=== PATIENT | female | born 1985 | race Caucasian/White ===

== ENCOUNTER 2017-02-04 10:37 | Emergency (ER) | payer OTHER ==
[2017-02-04 11:09] VITALS: BP 127/80
--- NOTE | 2017-02-04 11:30 | UC ---
Dental HPI - HPI Summary HPI Summary: pt presents with c/o with left lower jaw swelling, tenderness and fracture of left lower molar. Pt reports that the left lower molar broke " a few days ago " and last night began to have tenderness and swelling in left lower jaw. - History of Current Complaint Chief Complaint: UCDentalProblem Stated Complaint: DENTAL COMPLAINT Time Seen by Provider: 02/04/17 11:26 Hx Obtained From: Patient Hx Last Menstrual Period: 01/24/17 ?: No Onset/Duration: Sudden Onset, Lasting Hours Severity: Moderate Aggravating: Heat, Cold, Chewing Alleviating: Nothing Related History: Swelling, Other - fractured tooth, generalized poor dentition - Allergies/Home Medications Allergies/Adverse Reactions: Allergies Allergy/AdvReac Type Severity Reaction Status Date / Time No Known Allergies Allergy Verified 02/04/17 11:10 Home Medications: Home Medications ALPRAZolam TAB* [Xanax TAB*] 0.25 mg PO Q12H PRN 02/04/17 [History Confirmed 05/14] Escitalopram Oxalate [Lexapro 20 mg] 20 mg PO DAILY 02/04/17 [History Confirmed 02/04/17] PMH/Surg Hx/FS Hx/Imm Hx Previously Healthy: Yes - poor dentition - Surgical History Surgical History: Yes Surgery Procedure, Year, and Place: appendectomy, emergency 06/22/15, tubal ligation - Family History Known Family History: Positive: Cardiac Disease - Social History Alcohol Use: Rare Substance Use Type: None Smoking Status (MU): Light Every Day Tobacco Smoker Type: Cigarettes Amount Used/How Often: 10 cig/per day Length of Time of Smoking/Using Tobacco: 12 + years Have You Smoked in the Last Year: Yes Review of Systems Constitutional: Negative Skin: Negative Eyes: Negative ENT: Other - left lower jaw/gum swelling Respiratory: Negative Cardiovascular: Negative Gastrointestinal: Negative Genitourinary: Negative Motor: Negative Neurovascular: Negative Musculoskeletal: Negative Neurological: Negative Psychological: Negative All Other Systems Reviewed And Are Negative: Yes Physical Exam Triage Information Reviewed: Yes Appearance: Pain Distress Vital Signs: Initial Vital Signs Temp 97.4 F 02/04/17 11:03 Pulse 65 02/04/17 11:03 Resp 18 02/04/17 11:03 BP 127/80 02/04/17 11:03 Vital Signs Reviewed: Yes Eye Exam: Normal ENT Exam: Other ENT: Positive: Other: - left lower jaw swelling, Dental Exam: Other Dental: Positive: Gross Decay/Caries @ - generalized, Dental Fracture @ - left lower jaw/molar, Abscess @ - left lower jaw/molar Neck exam: Normal Respiratory Exam: Normal Cardiovascular Exam: Normal Musculoskeletal Exam: Normal Neurological Exam: Normal Psychological Exam: Normal Skin Exam: Normal Dental Complaint Course/Dx - Differential Dx/Diagnosis Differential Diagnosis/Dx: Dental Abscess, Fractured Tooth Provider Diagnoses: dental abscess. fractured tooth. poor dentition Discharge - Discharge Plan Condition: Stable Disposition: HOME Prescriptions: Amoxicillin (*) [Amoxicillin 875 MG (*)] 875 mg PO Q12H #20 tab Ibuprofen TAB* [Motrin TAB* 800 MG] 800 mg PO Q8H #30 tab Lidocaine 2% VISCOUS* [Xylocaine 2% Viscous*] 15 ml SWISH SPIT Q4H PRN #1 btl PRN Reason: Pain predniSONE TAB* [Deltasone TAB*] 30 mg PO DAILY #12 tab Patient Education Materials: Dental Abscess (ED) Referrals: No Primary Care Phys,NOPCP [Primary Care Provider] - Additional Instructions: Please follow up with your dental care provider as soon as possible.
== END 2017-02-04 11:39 | disposition home or self-care (01) ==
LOC: UCCORT 10:37
DX: K04.7 Periapical abscess without sinus (principal); K03.81 Cracked tooth; F17.210 Nicotine dependence, cigarettes, uncomplicated
CPT/HCPCS: 99212; G0463

== ENCOUNTER 2017-04-25 15:56 | Emergency (ER) | payer OTHER ==
--- NOTE | 2017-04-25 16:08 | UC ---
Back Pain HPI - HPI Summary HPI Summary: 31 year old female with back pain and injury from work. LOW BACK PAIN SINCE LAST SATURDAY. 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 HAS BEEN OFF WORK SINCE. USING ICE AND HEAT. TAKING IBUPROFEN WITH NO RELIEF. FOR 4 DAYS HAS NUMBNESS IN RIGHT HAND ON AND OFF. [ End ] - History of Current Complaint Stated Complaint: LOWER BACK PAIN WC Time Seen by Provider: 04/25/17 16:07 Hx Obtained From: Patient Hx Last Menstrual Period: 01/24/17 Onset/Duration: Sudden Onset Character: Stiffness Aggravating Factor(s): Movement Alleviating Factor(s): Rest - Allergies/Home Medications Allergies/Adverse Reactions: Allergies Allergy/AdvReac Type Severity Reaction Status Date / Time No Known Allergies Allergy Verified 04/25/17 16:10 Home Medications: Home Medications Minocycline HCl 50 mg PO BID 04/25/17 [History Confirmed 04/25/17] hydrOXYzine HCL TAB* [Atarax 10 MG TAB*] 10 mg PO BEDTIME 04/25/17 [History Confirmed 04/25/17] PMH/Surg Hx/FS Hx/Imm Hx Previously Healthy: Yes - Surgical History Surgical History: Yes Surgery Procedure, Year, and Place: appendectomy, emergency 06/22/15, tubal ligation - Family History Known Family History: Positive: Cardiac Disease - Social History Occupation: Employed Full-time Lives: With Family Alcohol Use: Rare Substance Use Type: None Smoking Status (MU): Light Every Day Tobacco Smoker Type: Cigarettes Amount Used/How Often: 10 cig/per day Length of Time of Smoking/Using Tobacco: 12 + years Have You Smoked in the Last Year: Yes Cessation Counseling: Patient Advised to Stop Review of Systems Motor: Decreased ROM Musculoskeletal: Arthralgia, Decreased ROM All Other Systems Reviewed And Are Negative: Yes Physical Exam Triage Information Reviewed: Yes Appearance: Well-Appearing, Well-Nourished Vital Signs Reviewed: Yes Respiratory Exam: Normal Cardiovascular Exam: Normal Musculoskeletal Exam: Normal Musculoskeletal: Positive: Strength Intact, ROM Limited @ - mild reduction of extension of the lumbar spine. no sp tenderness. no step offs. Lumbar paraspinal tenderness L2-4 as well as some cervical paraspinal tenderness left C4-5. FROm of the b/l LE and UE. sensation intact, strength 5/5, neg SLR, Neurological Exam: Normal Psychological Exam: Normal Skin Exam: Normal Back Pain Course/Dx - Course Course Of Treatment: start PT, NSAIDs, muscle relaxer in the evening prn, f/u with ortho if any concerns - Differential Dx/Diagnosis Differential Diagnosis/HQI/PQRI: Strain, Sprain Provider Diagnoses: Low back pain and right upper extremity numbness Discharge - Discharge Plan Condition: Good Disposition: HOME Prescriptions: Cyclobenzaprine TAB* [Flexeril 10 MG TAB*] 10 mg PO DAILY #10 tab Ibuprofen TAB* [Motrin TAB* 600 MG] 600 mg PO Q8H PRN #30 tab PRN Reason: Pain Patient Education Materials: Low Back Strain (ED), Arm Pain (ED) Forms: *School Release, *Work Release Referrals: Efrain Ward MD [Medical Doctor] - (ortho referral ) Veronica Dick MD [Primary Care Provider] - 4 Days
[2017-04-25 17:21] VITALS: BP 131/90
--- NOTE | 2017-04-25 18:08 | RAD ---
INDICATION: Neck pain. COMPARISON: There are no prior studies available for comparison. TECHNIQUE: 3 views of the cervical spine were obtained including lateral, AP and open-mouth odontoid views. FINDINGS: C1-C7 are visualized. There is straightening of the cervical spine with loss of the normal cervical lordosis. No prevertebral soft tissue swelling or fracture is seen. Disc spaces appear maintained. IMPRESSION: STRAIGHTENING OF THE CERVICAL SPINE.
--- NOTE | 2017-04-25 18:10 | RAD ---
INDICATION: Low back pain. COMPARISON: There are no prior studies available for comparison. TECHNIQUE: AP and lateral views of the lumbar spine were obtained. FINDINGS: The vertebra are in normal alignment. No fracture is seen. Disc spaces appear maintained. There are bilateral tubal ligation clips which project over the pelvis. IMPRESSION: NO EVIDENCE FOR FRACTURE OR SUBLUXATION.
== END 2017-04-25 17:30 | disposition home or self-care (01) ==
LOC: UCCORT 15:56
DX: M54.5 Low back pain (principal); R20.0 Anesthesia of skin; Z87.891 Personal history of nicotine dependence
CPT/HCPCS: 72040; 72100; 99212; G0463

== ENCOUNTER 2018-12-24 15:30 | Emergency (ER) | payer OTHER ==
[2018-12-24 15:58] VITALS: BP 129/79
--- NOTE | 2018-12-24 17:10 | UC ---
Skin Complaint HPI - HPI Summary HPI Summary: PATIENT WITH A HISTORY OF HIDRADENITIS SUPPURATIVA FOLLOWED BY DR. OCAMPO WITH DERMATOLOGY. STATES SHE WAS BEING MAINTAINED ON [employer] BUT WAS UNABLE TO KEEP UP WITH THE MONTHLY BLOOD WORK SO HAS NOT BEEN TREATED FOR THE PAST 4-5 MONTHS. OVER THE PAST 2 DAYS SHE HAS DEVELOPED INCREASINGLY PAINFUL LESIONS UNDER HER RIGHT BREAST. NO FEVER. NO DRAINAGE FROM THE LESIONS. WAS UNABLE TO GET AN APPOINTMENT WITH DR. OCAMPO FOR ANOTHER MONTH. - History of Current Complaint Chief Complaint: UCSkin Time Seen by Provider: 12/24/18 16:06 Stated Complaint: sore on side Hx Obtained From: Patient Hx Last Menstrual Period: 11/30/18 Onset/Duration: Gradual Onset, Lasting Days, Still Present Timing: Constant Onset Severity: Moderate Current Severity: Moderate Pain Intensity: 7 Pain Scale Used: 0-10 Numeric Location: Discrete - RIGHT BREAST Character: Pain, Redness Aggravating Factor(s): Touch Alleviating Factor(s): Nothing Associated Signs & Symptoms: Positive: Tenderness. Negative: Nausea, Fever, Drainage - Allergy/Home Medications Allergies/Adverse Reactions: Allergies Allergy/AdvReac Type Severity Reaction Status Date / Time No Known Allergies Allergy Verified 12/24/18 15:58 PMH/Surg Hx/FS Hx/Imm Hx - Additional Past Medical History Additional PMH: HIDRADENITIS SUPPURATIVA Psychological History: Anxiety, Depression - Surgical History Surgical History: Yes Surgery Procedure, Year, and Place: appendectomy, emergency 06/22/15, tubal ligation - Family History Known Family History: Positive: Cardiac Disease - Social History Alcohol Use: Rare Substance Use Type: None Smoking Status (MU): Light Every Day Tobacco Smoker Type: Cigarettes Amount Used/How Often: 10 cig/per day Length of Time of Smoking/Using Tobacco: 12 + years Have You Smoked in the Last Year: Yes Household Exposure Type: Cigarettes Review of Systems All Other Systems Reviewed And Are Negative: Yes Constitutional: Positive: Negative Skin: Positive: Other - TENDER LESIONS RIGHT BREAST Respiratory: Positive: Negative Cardiovascular: Positive: Negative Gastrointestinal: Positive: Negative Physical Exam Triage Information Reviewed: Yes Appearance: Well-Appearing, No Pain Distress, Well-Nourished Vital Signs: Initial Vital Signs Temp 98.2 F 12/24/18 15:52 Pulse 98 12/24/18 15:52 Resp 16 12/24/18 15:52 BP 129/79 12/24/18 15:52 Pulse Ox 97 12/24/18 15:52 Vital Signs Reviewed: Yes Eyes: Positive: Conjunctiva Clear ENT: Positive: Hearing grossly normal Neck: Positive: Supple Respiratory: Positive: No respiratory distress, No accessory muscle use Cardiovascular: Positive: Pulses Normal Abdomen Description: Positive: Soft Musculoskeletal: Positive: No Edema Neurological: Positive: Alert Psychological: Positive: Age Appropriate Behavior Skin: Positive: Other - TENDER CLUSTERS OF ERYTHEMATOUS, FLUCTUANT LESIONS UNDER RIGHT BREAST Course/Dx - Course Course Of Treatment: APPOINTMENT MADE FOR PATIENT TO SEE DR. OCAMPO [facility] MORNING AT 9:20AM. I STRONGLY ENCOURAGED HER TO FIND THE TIME TO HAVE HER MONTHLY LAB WORK DONE SO SHE CAN CONTINUE HER TREATMENTS WITH HIM TO KEEP HER SYMPTOMS AT BAY. - Diagnoses Provider Diagnosis: Hidradenitis suppurativa Discharge - Sign-Out/Discharge Documenting (check all that apply): Patient Departure All imaging exams completed and their final reports reviewed: No Studies - Discharge Plan Condition: Stable Disposition: HOME Patient Education Materials: Hidradenitis Suppurativa (ED) Referrals: Kalpesh Ocampo MD [Medical Doctor] - (YOU HAVE AN APPT TOMORROW MORNING AT 9: 20AM. ) Veronica Dick MD [Primary Care Provider] - If Needed Additional Instructions: YOU HAVE BEEN SCHEDULED TO SEE DR. OCAMPO TOMORROW MORNING AT 9:20 AM. IN THE MEANTIME TAKE OTC IBUPROFEN FOR DISCOMFORT. YOU MAY APPLY HEAT IF THIS IS HELPFUL. - Billing Disposition and Condition Condition: STABLE Disposition: Home
== END 2018-12-24 17:10 | disposition home or self-care (01) ==
LOC: UCEAST 15:30
DX: L73.2 Hidradenitis suppurativa (principal); F41.9 Anxiety disorder, unspecified; F32.9 Major depressive disorder, single episode, unspecified; F17.210 Nicotine dependence, cigarettes, uncomplicated
CPT/HCPCS: 99211; G0463